=== PATIENT | female | born 1960 | race Asian ===

== ENCOUNTER 2018-07-02 18:19 | Emergency (ER) | payer SELFPAY ==
[~2018-07-02] VITALS: Ht 162.6 cm; Wt 68.0 kg
[2018-07-02 18:21] VITALS: BP 147/96
--- NOTE | 2018-07-02 18:31 | NUR ---
ED Nurse Note: Pt c/o left hand laceration 3-4cm single site after being cut by a broken glass. No active bleeding but applied pressure dressing.
[2018-07-02] MEDS ORDERED: Bacitracin Oint UD TOPIC ONE (18:45)
[2018-07-02] MEDS ORDERED: Tetanus/Diptheria/Pertussis Vaccine 0.5ml Syr IM ONE (18:45)
[2018-07-02] MEDS ORDERED: Lidocaine 1% 10mg/ml/Epi 0.005mg/ml 30ml vial INJ ONE (18:45)
--- NOTE | 2018-07-02 19:23 | NUR ---
HAND-OFF: Report given to NOBLE Koch.
[2018-07-02] MEDS ORDERED: CEPHALEXIN500 MG ORAL (19:24)
[2018-07-02] MEDS ORDERED: TYLENOL EXTRA500 MG ORAL (19:24)
[2018-07-02 19:30] VITALS: BP 142/88
--- NOTE | 2018-07-02 19:30 | NUR ---
ER DISCHARGE NOTE: Patient is cleared to be discharged per ERMD, pt is aox4, on room air, with stable vital signs. pt was given dc and prescription instructions, pt was able to verbalize understanding, pt id band and iv site removed without complications. pt is able to ambulate with steady gait. pt took all belongings.
--- NOTE | 2018-07-02 22:49 | Emergency Room Report ---
History of Present Illness General Chief Complaint: Laceration Source: Patient Present Illness HPI The patient is a 57 old female presenting for left hand laceration which occurred today.. She states that she was at a store and a glass display case had a broken edge. Her hand struck that area. She noticed immediate pain and bleeding. Pain is now a 3 out of 10 dull ache and does not radiate. Worse with touch. She denies any numbness. She denies any other symptoms or injury. Last tetanus shot more than 10 years prior Allergies: Coded Allergies: No Known Allergies (Unverified , 07/02/18) Patient History Past Medical History: see triage record Pertinent Family History: none Last Menstrual Period: menopause Reviewed Nursing Documentation: PMH: Agreed; PSxH: Agreed Nursing Documentation-PMH Past Medical History: No Stated History Review of Systems All Other Systems: negative except mentioned in HPI Physical Exam Vital Signs Date Time Temp Pulse Resp B/P (MAP) Pulse Ox O2 Delivery O2 Flow Rate FiO2 07/02/18 18:21 97.5 80 18 147/96 96 Room Air Sp02 EP Interpretation: reviewed, normal General Appearance: no apparent distress, alert, GCS 15, non-toxic Head: normocephalic, atraumatic Musculoskeletal: back normal, digits/nails normal, gait/station normal, normal range of motion Neurologic: alert, oriented x3, responsive, motor strength/tone normal, sensory intact, speech normal Psychiatric: judgement/insight normal, memory normal, mood/affect normal, no suicidal/homicidal ideation Skin: normal turgor, laceration - 4cm linear laceration to L hand dorsal surface. Lymphatic: no adenopathy Procedures Laceration/Wound Repair Laceration/Wound Repair : Consent: Verbal Wound Location: upper extremity Wound's Depth, Shape: superficial, linear Wound Length (cm): 4 Wound Explored: no foreign body removed Irrigated w/ Saline (ccs): 100 Betadine Prep?: Yes Anesthesia: 1% Lidocaine, Lidocaine w/ Epi Volume Anesthetic (ccs): 4 Wound Debrided: minimal Wound Repaired With: sutures Suture Size/Type: 5:0, nylon Number of Sutures: 5 Layer Closure?: No Sterile Dressing Applied?: Yes Splint Applied?: No Sling Applied?: No Patient Tolerated: Well Complications: None Medical Decision Making PA Attestation Dr. Padilla is my supervising physician. Patient management was discussed with my supervising physician Diagnostic Impression: Primary Impression: Laceration of hand Qualified Codes: S61.412A - Laceration without foreign body of left hand, initial encounter ER Course The patient is a 57 old female presenting for left hand laceration which occurred today. Ddx considered include but not limited to laceration, fracture, tendon/ligament injury, avulsion, nerve damage PE: NAD L hand laceration 4cm linear dorsal surface. No tendon visible. No foreign body. SILT Full AROM intact The wound was irrigated with normal saline and cleaned with betadine. A 27g needle was used to administer 4mL of lidocaine w/ epi for local anaesthesia. 5 sutures were placed with 5-0 Nylon. The wound was well approximated and the patient tolerated the procedure well. The wound was then cleaned and bacitracin was applied. The patient is given prescription for antibiotics and pain medication. She is told to follow-up with primary doctor for wound check within 3 days. Suture care instructions given. She is told these need to be removed in one week. ER precautions given Last Vital Signs Date Time Temp Pulse Resp B/P (MAP) Pulse Ox O2 Delivery O2 Flow Rate FiO2 07/02/18 19:30 97.5 82 18 142/88 96 Room Air Status: improved Disposition: HOME, SELF-CARE Condition: Improved Scripts Cephalexin* (KEFLEX*) 500 Mg Capsule 500 MG ORAL EVERY 12 HOURS, #14 CAP 0 Refills Prov: TERZIAN,MARGE P.A. 07/02/18 Acetaminophen* (TYLENOL EXTRA STRENGTH*) 500 Mg Tablet 500 MG ORAL Q8H PRN for Prn Headache/Temp > 101, #30 TAB 0 Refills Prov: TERZIAN,MARGE P.A. 07/02/18 Referrals: NOT CHOSEN [facility]/MD,REFERRING (PCP) Patient Instructions: Laceration Care, Adult Additional Instructions: I discussed my findings with the patient. All questions and concerns have been answered. Treatment and medication compliance have been addressed. I advised the patient that they need to follow up with primary doctor in 5-7 days for wound check and suture removal. If you are unable to see your doctor, return to the EDR within one week. Return to ER if pain remains or worsens, you notice discharge from the wound, the wound continues to bleed, the suture/s fall out, you notice a fever or chills, or for any reason. Patient is advised to keep the wound clean and apply an antibacterial ointment. Patient verbalized understanding of discharge instructions. MARGE SINGH Jul 02, 2018 22:49
== END 2018-07-02 19:30 | disposition home or self-care (01) ==
LOC: EMR 18:35
DX: S61.412A Laceration without foreign body of left hand, initial encounter (principal); F17.200 Nicotine dependence, unspecified, uncomplicated; Z23 Encounter for immunization; W25.XXXA Contact with sharp glass, initial encounter; Y92.512 Supermarket, store or market as the place of occurrence of the external cause
CPT/HCPCS: 90471; 90715; 99283